=== PATIENT | male | born 1990 | race Caucasian/White ===

== ENCOUNTER 2016-11-21 11:15 | Emergency (ER) | payer BC, OTHER ==
[2016-11-21 11:25] VITALS: BP 134/75; PULSE 92; TEMP 97.9; BMI 28.7
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
[2016-11-21] MEDS ORDERED: OXYCODONE/APAP 5/325MG COMBO TABLET PO ONE (12:46)
[2016-11-21] MEDS ORDERED: OXYCODONE/APAP 5/325MG COMBO TABLET ONE (12:53)
== END 2016-11-21 13:21 | disposition home or self-care (01) ==
LOC: JERFT 11:15
DX: S90.31XA Contusion of right foot, initial encounter (principal); F10.10 Alcohol abuse, uncomplicated; W17.89XA Other fall from one level to another, initial encounter; Y93.89 Activity, other specified; Y92.89 Other specified places as the place of occurrence of the external cause
CPT/HCPCS: 73610-TC-RT; 73630-TC-RT; 73650-TC-RT; 99281-25

== ENCOUNTER 2018-11-23 11:47 | Emergency (ER) | payer OTHER ==
[2018-11-23 11:52] VITALS: BP 125/72; PULSE 50; TEMP 98.6; BMI 29.4
[2018-11-23] MEDS ORDERED: CYCLOBENZAPRINE HCL 10 MG TABLET (FP) PO ONE (12:54)
[2018-11-23] MEDS ORDERED: KETOROLAC TROMETHAMINE 60 MG/2 ML VIAL IM ONE (12:54)
[2018-11-23] MEDS ORDERED: CYCLOBENZAPRINE HCL 10 MG TABLET (FP) ONE (12:56)
[2018-11-23] MEDS ORDERED: KETOROLAC TROMETHAMINE 60 MG/2 ML VIAL ONE (12:56)
--- NOTE | 2018-11-23 13:03 | PDOC ---
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 Patient reported lifting heavy equipment at work today and might have strained the back from heavy lifting. Patient reported taking 400 mg Motrin 6 hours ago with no improvement. Patient reported pain comes on with movement and improves when laying still. Denies any other symptoms.Patient denies radiculopathy. Timing/Duration: 4-6 hours Past History - Past Medical History Allergies/Adverse Reactions: Allergies Allergy/AdvReac Type Severity Reaction Status Date / Time pineapple Allergy Verified 11/23/18 11:52 Home Medications: Ambulatory Orders Methocarbamol [Robaxin -] 500 mg PO BID #14 tablet 11/23/18 Naproxen 500 mg PO BID PRN #20 tablet 11/23/18 COPD: No - Immunization History Immunization Up to Date: Yes - Suicide/Smoking/Psychosocial Hx Smoking History: Never smoked Have you smoked in the past 12 months: No Hx Alcohol Use: No Drug/Substance Use Hx: No Substance Use Type: None Review of Systems - Review of Systems Able to Perform ROS?: Yes Is the patient limited Maltese proficient: No Constitutional: No: Weakness HEENTM: No: Symptoms Reported Respiratory: No: Symptoms reported Cardiac (ROS): No: Symptoms Reported ABD/GI: No: Symptoms Reported Musculoskeletal: Yes: See HPI, Back Pain (right side lower back), Muscle Pain. No: Joint Swelling, Muscle Weakness, Joint Stiffness Neurological: No: Numbness, Paresthesia, Tingling, Dizziness *Physical Exam - Vital Signs Last Vital Signs Temp Pulse Resp BP Pulse Ox 98.6 F 50 L 18 125/72 100 11/23/18 11:50 11/23/18 11:50 11/23/18 11:50 11/23/18 11:50 11/23/18 11:50 - Physical Exam Comments: 11/23/18 13:00 GENERAL: Well developed, well nourished. Awake and alert in moderate acute distress. CARDIOVASCULAR: Regular rate and rhythm. No murmurs, rubs, or gallops. PULMONARY: No evidence of respiratory distress. Lungs clear to auscultation bilaterally. No wheezing, rales or rhonchi. ABDOMINAL: Soft. Non-tender. Non-distended. No rebound or guarding. No organomegaly. Normoactive bowel sounds MUSCULOSKELETAL : mild tenderness over posterior paravertebral muscle to right lower lumbar spine of L3-S1 which is worse with movement and external rotation of the hip to the left. No bony deformities SKIN: Warm and dry. Normal capillary refill. No rashes. No jaundice. NEUROLOGICAL: Alert, awake, appropriate. No motor deficits in the lower extremities. Negative straight leg tests of right lower extremity. Gait is normal without ataxia. PSYCHIATRIC: Cooperative. Good eye contact. Appropriate mood and affect. General Appearance: Yes: Nourished, Appropriately Dressed, Moderate Distress Moderate Sedation - Procedure Monitoring Vital Signs: Procedure Monitoring Vital Signs Temperature 98.6 F 11/23/18 11:50 Pulse Rate 50 L 11/23/18 11:50 Respiratory Rate 18 11/23/18 11:50 Blood Pressure 125/72 11/23/18 11:50 O2 Sat by Pulse Oximetry (%) 100 11/23/18 11:50 Medical Decision Making - Medical Decision Making 11/23/18 13:03 Patient with no significant past medical history present with complaint of right low back pain status post heavy lifting this morning which has not been improved with Motrin. Symptoms likely back strain from heavy lifting. Toradol 60 mg IM and cyclobenzaprine 5 mg by mouth ordered for pain and spasm. Patient will be watch for 15 minutes and discharged home on NSAIDs and muscle relaxer with advised to do stretching exercise with orthopedist follow-up. 11/23/18 13:34 Patient feeling better with toradol and Flexiril. Stable for discharge *DC/Admit/Observation/Transfer Diagnosis at time of Disposition: Muscle spasm Low back strain Qualifiers: Encounter type: initial encounter Qualified Code(s): S39.012A - Strain of muscle, fascia and tendon of lower back, initial encounter - Discharge Dispostion Disposition: HOME Condition at time of disposition: Stable Decision to Admit order: No - Prescriptions Prescriptions: Methocarbamol [Robaxin -] 500 mg PO BID #14 tablet Naproxen 500 mg PO BID PRN #20 tablet PRN Reason: Back Pain - Referrals Referrals: Juno Stover DO [Staff Physician] - - Patient Instructions Printed Discharge Instructions: Low Back Pain, Exercise May Reduce Risk of Low Back Pain Additional Instructions: Take medications as prescribed for lower back pain. Symptoms likely back spasm. Do stretching exercise as tolerated. Apply heat to lower back 2-3 times a day for 5-10 minutes as needed for pain. Follow-up referred to orthopedics if symptoms does not improve in 3 days. - Post Discharge Activity Forms/Work/School Notes: Back to Work
== END 2018-11-23 13:40 | disposition home or self-care (01) ==
LOC: JERFT 11:47
PROC: 3E0233Z Introduction of Anti-inflammatory into Muscle, Percutaneous Approach (ICD-10-PCS; principal; 2018-11-23)
DX: S39.012A Strain of muscle, fascia and tendon of lower back, initial encounter (principal); X50.9XXA Other and unspecified overexertion or strenuous movements or postures, initial encounter; Y93.89 Activity, other specified; Y92.89 Other specified places as the place of occurrence of the external cause; Y99.0 Civilian activity done for income or pay
CPT/HCPCS: 99281-25

== ENCOUNTER 2024-10-08 12:04 | Emergency (ER) | payer OTHER ==
[2024-10-08 12:12] VITALS: BP 138/80; PULSE 67; RESP 18; TEMP 98.2
== END 2024-10-08 12:46 | disposition home or self-care (01) ==
LOC: JERFT 12:04
DX: M62.830 Muscle spasm of back (principal)
CPT/HCPCS: 99283-25